=== PATIENT | female | born 1990 | race Caucasian/White ===

== ENCOUNTER 2023-07-18 00:30 | Emergency (ER) | payer MEDICAID ==
[~2023-07-18] VITALS: Ht 157.5 cm; Wt 65.5 kg
[2023-07-18 00:54] VITALS: BP 142/96; PULSE 104; RESP 19; TEMP 97.9; O2SAT 100
[2023-07-18] MEDS ORDERED: KETOROLAC 30 MG/ML VIAL IVP ONE (01:45)
[2023-07-18] MEDS ORDERED: NACL 0.9% 1,000 ML IV ONE (01:45)
== END 2023-07-18 02:00 | disposition left against medical advice (07) ==
LOC: MED 00:30
DX: R51.9 Headache, unspecified (principal); Z53.21 Procedure and treatment not carried out due to patient leaving prior to being seen by health care provider
CPT/HCPCS: 81002; 81025; 99281